=== PATIENT | male | born 1945 | race Caucasian/White ===

== ENCOUNTER → 2017-01-08 | Outpatient (CLI) | payer OTHER ==
[~2017-01-08] VITALS: Ht 180.3 cm; Wt 99.3 kg
[~2017-01-08] MED LIST: ATORVASTATIN CA40 MG PO; LEVOTHYROXINE 0.1 MG PO; LOSARTAN-HCTZ1 EACH PO; ZPAK PO
--- NOTE | ~2017-01-08 | HPC ---
[facility] [address] [place] [address] PAIN MANAGEMENT CONSULTATION Name: JAROCHO WALTERS A Room #: REG [facility] Ivette#: [id number] Admission: 01/08/17 Attend Phys: Nirmal Millan DO Discharge: Date of : 45 Report #: [id number] THIS REPORT FOR: //name// CC: Darrion Millan The patient is a very pleasant 71-year-old gentleman well known to pain clinic. I prior had treated him in [facility] for symptomatic right shoulder pain component of rotator cuff tear, DJD. Injection 09/30/2016 afforded 60-70% relief for several months. Pain began to recur in the last 6 weeks. Last week while on vacation in [place], the pain became quite problematic. Prior injection nearly 4 months ago, gave him 3 months relief, pain is about 5-6 on a 0-10 visual analog scale presently. Problem is that it is up to 9/10 at night interfering with sleep. He is loathe to take opiate analgesics. PHYSICAL EXAMINATION: GENERAL: Shows pleasant 71-year-old gentleman appearing younger than stated age. BMI is 30.6 kilograms per meter squared. Vital signs are stable. MUSCULOSKELETAL: Cervical range of motion is modestly limited, significant limitation of range of motion right shoulder with pain to both passive and active rotation. ASSESSMENT: Right shoulder pain, degenerative joint disease. RECOMMENDATION: Right shoulder injection under fluoroscopy. PROCEDURE NOTE: After written informed consent was obtained including risk of infection. The patient was taken to the fluoroscopy suite and placed in supine position. Skin overlying the right shoulder was cleansed with ChloraPrep. Skin wheal with Xylocaine was raised. A #22-gauge stylet needle was placed to contact the proximal aspect of the humeral head, negative aspiration was accomplished, 1 mL of Omnipaque was injected shows spread within the glenohumeral joint as well as with 40 mg triamcinolone plus 2 mL of 0.5% preservative free bupivacaine. Milmay removed. The area was cleansed and band-aid applied. The patient monitored for an appropriate period of time, discharged in good and stable condition. <ELECTRONICALLY SIGNED> By: Nirmal Millan DO 01/09/17 [id number] Nirmal Millan DO /nt
[2017-01-08 15:07] VITALS: BP 114/74
== END ==
LOC: PAIN 11:17
DX: M19.011 Primary osteoarthritis, right shoulder (principal); I10 Essential (primary) hypertension; M06.80 Other specified rheumatoid arthritis, unspecified site

== ENCOUNTER → 2021-10-03 | Outpatient (CLI) | payer OTHER ==
[~2021-10-03] VITALS: Ht 177.8 cm; Wt 93.0 kg
[2021-10-03 13:33] VITALS: BP 111/77
--- NOTE | 2021-10-03 13:54 | NUR ---
Pain Clinic Assessment: 1. History of Osteoarthritis: Not Applicable History of Rheumatoid Arthritis: Not Applicable 2. Height: 5 ft. 10 in. 177.8 cm. Weight: 205.0 lb. oz. 92.988 kg. Patient's BMI: 29.4 3. Vital Signs: BP: 111/77 Pulse: 60 Resp: 16 Temp: 02 Sat: 100 ECG Mon: 4. Pain Intensity: 7 5. Fall Risk: Dizziness: N Needs help standing or walking: N Fallen in the last 3 months: N Fall risk comments: 6. Patient on Blood Thinner: None 7. History of Hypertension: Y 8. Opioid Therapy greater than 6 weeks: N Opiate Contract Signed: 9. Risk Assessment Tool Provided: low-0 10. Functional Assessment Tool: 65/70 11. Recreational Drug Use: Never Drug Type: Tobacco Use: Never Smoker Tobacco Type: Amount or Packs/day: How Many Years: Alcohol Use: Yes Frequency: Daily Quant: 1
== END | disposition home or self-care (01) ==
LOC: PAIN 10:57
PROVIDERS: ATTEND Anesthesiology Pain Medicine
DX: M12.812 Other specific arthropathies, not elsewhere classified, left shoulder (principal); M12.811 Other specific arthropathies, not elsewhere classified, right shoulder; M25.511 Pain in right shoulder; M25.512 Pain in left shoulder; I10 Essential (primary) hypertension; E07.9 Disorder of thyroid, unspecified; Z98.890 Other specified postprocedural states; Z79.899 Other long term (current) drug therapy